=== PATIENT | female | born 1950 | race Caucasian/White ===

== ENCOUNTER 2019-05-10 18:12 | Observation (INO) ==
[2019-05-10] MEDS ORDERED: ASPIRIN PO ONE (18:26)
[2019-05-10] MEDS ORDERED: ASPIRIN PR ONE (18:26)
--- NOTE | 2019-05-10 18:52 | Diag Imaging Result Doc PS360 ---
EXAM: CHEST-2 VIEWS 05/10/2019 HISTORY: SOB TECHNIQUE: PA and lateral chest COMMENT: There is apical pleural thickening bilaterally. The heart size and pulmonary vascularity are within normal limits. Compared to 04/29/2019 there has been no significant change. IMPRESSION: Stable chest. Electronically signed by Hugo Garza 05/10/2019 6:50 PM
[2019-05-10 19:52] LABS: BASO# 0.01 X1000 (0.0-0.2); BASO% 0.2 % (0.0-0.8); EOS# 0.18 X1000 (0.0-0.7); EOS% 3.2 % (0.0-10.0); HEMATOCRIT 44.8 % (37.0-47.0); LYMPH# 2.23 X1000 (1.2-3.4); LYMPH% 39.3 % (20.5-51.1); MCHC 33.5 g/dL (33-37); MCV 98.7 FL (81-99); MONO# 0.72 X1000 (0.11-0.59); MONO% 12.7 % (1.7-9.3); MPV 10.6 FL (7.4-10.4); NEUT# 2.54 X1000 (1.4-6.5); NEUT% 44.6 % (42.2-75.2); PLT 231 X1000 (130-400); RBC 4.54 XMIL (4.2-5.4); RDW 13.1 % (11.5-14.5); WBC 5.68 X1000 (4.8-10.8)
[2019-05-10 20:06] LABS: INR 0.85; PROTIME 11.7 Seconds (11.0-16.0)
[2019-05-10 20:20] LABS: AGAP 12; ALB/GLOB RATIO 1.3; ALBUMIN 4.3 g/dL (3.5-5.0); ALKALINE PHOSPHATASE 112 U/L (32-104); BUN 10 mg/dL (8-22); CALCIUM 9.8 mg/dL (8.8-10.2); CHLORIDE 99 mmol/L (98-107); CK PROFILE 37 U/L (24-173); COSMO 278; CREATININE 0.7 mg/dL (0.5-0.9); ESTIMATED GFR > 60; GLUCOSE 119 mg/dL (70-104); GOT 24 U/L (10-30); GPT 18 U/L (10-36); POTASSIUM 4.1 mmol/L (3.5-5.1); SODIUM 139 mmol/L (136-145); TCO2 28 mmol/L (25-35); TOTAL BILIRUBIN < 0.15 mg/dL (0.20-1.00); TOTAL PROTEIN 7.7 g/dL (6.3-8.3)
[2019-05-10] MEDS ORDERED: TORADOL IM ONE (21:41)
--- NOTE | 2019-05-10 21:58 | PROVIDER DOCUMENTATION ---
This chart was entered by Tereza Stewart Scribe, acting as scribe for Anthony Gutierrez MD. HPI-Chest Pain - General Chief Complaint: Chest Pain Stated Complaint: CHEST PAIN/BACK/JAW PAIN/SOB/HIGH HEART RATE Time Seen by Provider: 05/10/19 20:55 Source: patient Allergies/Adverse Reactions: Patient Allergies Allergy/AdvReac Type Severity Reaction Status Date / Time phenobarbital Allergy Mild RASH Verified 05/13/13 09:29 Home Medications: Home Medication List Medication Instructions Recorded Confirmed Last Taken Type Estradiol [Estrace] 1 mg PO DAILY 11/26/12 03/08/14 03/07/14 20:00 History Lisinopril [Zestril] 10 mg PO DAILY 11/26/12 03/08/14 03/08/14 07:00 History Tramadol/APAP [Ultracet 1 tab PO BID 11/26/12 03/08/14 03/07/14 20:00 History 37.5MG/325Mg] Chlorzoxazone [Parafon Forte] 500 mg PO TID PRN PRN 01/12/13 03/08/14 03/07/14 20:00 History Clonazepam 1 mg PO TID 01/12/13 03/08/14 03/07/14 20:00 History Omeprazole [Prilosec] 20 mg PO DAILY 05/17/13 03/08/14 03/07/14 08:00 History Dicyclomine [Bentyl] 10 mg PO TID AC 02/01/14 03/08/14 03/07/14 20:00 History - History of Present Illness-CP Nature of Presenting Problem: 69 yof c/o cp intermittent but woke pt up last night,w/ pain radiating in left jaw, left shoulder blade and back. pt is also dizzy, having blurred vision. denies sob, fever and chills Chest Pain Radiation: reports: jaw, shoulders, back Onset/Duration: last night (woke pt up from sleeping) Timing: still present Review of Systems - Adult - REVIEW OF SYSTEMS - ADULT Constitutional: reports: no symptoms reported. denies: fever, fatique, night sweats Eyes: reports: see HPI, blurred vision. denies: dry eyes, eye pain, redness Ears, Nose, Mouth & Throat: reports: no symptoms reported Cardiovascular: reports: see HPI, chest pain. denies: irregular heart rate, orthopnea, palpitations Respiratory: reports: no symptoms reported. denies: dyspnea on exertion, shortness of breath, wheezing Gastrointestinal: reports: no symptoms reported Genitourinary: reports: no symptoms reported Musculoskeletal: reports: no symptoms reported Integumentary: reports: no symptoms reported Neurological: reports: see HPI, dizziness/vertigo. denies: headache/migraines, loss of balance, tremors Psychiatric: reports: no symptoms reported Endocrine: reports: no symptoms reported Hematologic/Lymphatic: reports: no symptoms reported Allergic/Immunologic: reports: no symptoms reported All Other Systems: Reviewed and Negative Past History - Adult - PAST MEDICAL HISTORY-ADULT Review of Records: reports: Old Records Reviewed, Nursing Assessment Review, Medications Reviewed, Social history reviewed & non-contributory. Major Childhood Illnesses: reports: denies history Cardiovascular: reports: HTN Respiratory: reports: denies history Gastrointestinal: reports: GERD Obstetrical/Gynecological: reports: denies history Genitourinary: reports: kidney stones Musculoskeletal: reports: denies history Neurological: reports: denies history Psychiatric: reports: depression Endocrine/Immune: reports: denies history Other Conditions: reports: denies history - PRIOR SURGERIES/PROCEDURES Surgical/Procedure History: reports: cholecystectomy, hysterectomy, joint replacement (TKA), back/neck - IMMUNIZATION STATUS Childhood Immunizations: See Nurse Assessment Flu Vaccine: See Nurse Assessment - FAMILY HISTORY Family History: reviewed, not pertinent - SOCIAL HISTORY Smoking: other (former) Substance Use: alcohol Alcohol Use Frequency: occasionally Physical Exam-General - PHYSICAL EXAM-ADULT Initial Vital Signs Reviewed: Yes - CONSTITUTIONAL General Appearance: appears well, alert, no apparent distress - EYES Eyes: PERRL/EOMI, pink conjunctivae - HEAD, EARS, NOSE, MOUTH & THROAT HENMT: normocephalic/atraumatic, moist mucous membranes, normal ENT inspection - NECK Neck: non-tender, full range of motion, supple, normal inspection - RESPIRATORY Respiratory: chest non-tender, lungs clear, normal breath sounds - CARDIOVASCULAR Cardiovascular: normal peripheral pulses, no edema, no gallop, no JVD, no murmur , tachycardia. negative: regular rate, rhythm, JVD, bradycardia, friction rub, irregularly irregular - CHEST (BREASTS) Chest/Breast: tenderness (reproducable 4th and 5th costochondrial junctions). negative: no tenderness, nipple discharge, mass/lump noted - GASTROINTESTINAL (ABDOMEN) Abdominal Exam: normal bowel sounds, non tender, soft - LYMPHATIC Lymphatic: no adenopathy - MUSCULOSKELETAL Back Exam: normal inspection, no CVA tenderness, no vertebral tenderness Extremity: normal range of motion, non-tender, normal inspection Peripheral Pulses: radial (R): 2+, radial (L): 2+ - SKIN Integumentary: normal color, normal turgor, warm/dry - NEUROLOGIC Neurologic: grossly normal, no motor/sensory deficits - PSYCHIATRIC Psych/Mental Status: normal mood/affect, normal thought content, normal thought process, oriented x 3 Progress - PLAN OF CARE/RESULTS Progress/Plan/Lab Results: Orders Category Date Time Status Admit - [facility] Routine AdmDCTranf 05/10/19 23:24 Active Cardiac Monitoring DIRECTED Care 05/10/19 18:26 Completed Notify MD if DIRECTED Care 05/10/19 23:24 Active Nursing- MD Consult Request ROUTINE Care 05/10/19 23:24 Active Oxygen Therapy- ED Nursing DIRECTED Care 05/10/19 18:26 Completed Saline Loc DIRECTED Care 05/10/19 23:24 Completed Saline Loc NOW Care 05/10/19 18:26 Completed Vital Signs Order Q 4-HR ASSESS Care 05/10/19 23:24 Active Z-Document. for Tele Applied ORDERED Care 05/10/19 23:24 Completed Physician/Provider Consults Routine Cons 05/10/19 23:24 Ordered NPO Diet 05/11/19 00:01 Completed CHEST-2 VIEWS [RAD] Stat Exams 05/10/19 18:26 Completed CBC WITH ELECTRONIC DIFF [HEME] Stat Lab 05/10/19 18:30 Completed CK PROFILE [SP CHEM] Q8H Lab 05/10/19 23:39 Completed CK PROFILE [SP CHEM] Q8H Lab 05/11/19 06:25 Completed CK PROFILE [SP CHEM] Q8H Lab 05/11/19 18:14 Completed CK PROFILE [SP CHEM] Stat Lab 05/10/19 18:30 Completed COMPREHENSIVE METABOLIC PANEL [CHEM] Stat Lab 05/10/19 18:30 Completed D-DIMER [COAG] Stat Lab 05/10/19 20:52 Completed LIPID PROFILE W/CALC LDL [LIPIDS] Routine Lab 05/11/19 06:25 Completed PRO B-NATRIURETIC PEPTIDE Stat Lab 05/10/19 18:30 Completed PROTIME WITH INR [COAG] Stat Lab 05/10/19 18:30 Completed PTT [COAG] Stat Lab 05/10/19 18:30 Completed TROPONIN T Q8H Lab 05/10/19 23:39 Completed TROPONIN T Q8H Lab 05/11/19 06:25 Completed TROPONIN T Q8H Lab 05/11/19 18:14 Completed TROPONIN T Stat Lab 05/10/19 18:30 Completed Acetaminophen [Tylenol] Med 05/10/19 23:24 Discontinued 650 mg PO Q6H PRN PRN Aspirin Med 05/10/19 18:26 Discontinued 300 mg MA NOW ONE Aspirin Med 05/11/19 09:00 Discontinued 325 mg PO DAILY Aspirin Med 05/10/19 18:26 Discontinued 325 mg PO NOW ONE Enoxaparin [Lovenox] Med 05/10/19 23:24 Discontinued 40 mg SUBQ Q24H Ketorolac [Toradol] Med 05/10/19 21:41 Discontinued 60 mg IM NOW ONE Nitroglycerin Sl [Nitroglycerin] Med 05/10/19 23:24 Discontinued 0.4 mg SL Q5M PRN PRN Omeprazole [Prilosec] Med 05/11/19 07:00 Discontinued 20 mg PO DAILY@0700 Ondansetron [Zofran] Med 05/10/19 23:24 Discontinued 4 mg IV Q4H PRN PRN Oxygen Device Routine Oth 05/10/19 23:24 Active Telemetry [OM.EQ] Routine Oth 05/10/19 23:24 Active EKG [EKG] Stat Ther 05/10/19 18:26 Draft Transfer/Admit Order [TRANSFER] Routine Transfer 05/10/19 22:06 Completed Result Diagrams: 05/10/19 18:30 05/10/19 18:30 - EKG 1 Time of EKG reading by physician:: 18:29 EKG Read and Signed by:: King Courtney EKG Interpretation (*Must complete 3 of following elements*): Abnormal Rate: 108 Rhythm: ST Sumpter: left QRS: normal MA Interval: normal ST Wave: normal - XRAY 1 XRAY Study: Chest Impression: See EMR Report ( EXAM: CHEST-2 VIEWS 05/10/2019 HISTORY: SOB TECHNIQUE: PA and lateral chest COMMENT: There is apical pleural thickening bilaterally. The heart size and pulmonary vascularity are within normal limits. Compared to 04/29/2019 there has been no significant change. IMPRESSION: Stable chest. Electronically signed by Hugo Garza 05/10/2019 6:50 PM) Comparison with other Films: no changes - CONSULTS/PCP/HOSPITALIST Notification #1 *Consult/PCP/Hospitalist*: Time Discussed: 22:05 Consult Disposition: Admit (for obvs) Departure - Departure Date of Disposition Decision: 05/10/19 Time of Disposition Decision: 22:50 DIAGNOSIS: Chest pain Disposition: ADMITTED INPATIENT 09 Certified Medical Emergency: Emergent Condition: Good - Critical Care Note This patient required my direct & personal management of CC.: No Attestation - Physician/ GARCIA Attestation Patient care was provided by Advanced Practice Provider:: No The physician spent face to face time with patient:: Yes Advanced Practice Provider documentation review:: Supervising physician onsite and consulted in the evaluation and care of this patient. The physician did have a face to face encounter with the patient. This chart was documented by the indicated scribe, (Tereza Stewart Scribe) and accurately reflects the services I performed and decisions made by me, Anthony Gutierrez MD, as attested by the provider's signature.
[2019-05-10] MEDS ORDERED: ZOFRAN IV PRN (23:24)
[2019-05-10] MEDS ORDERED: NITROGLYCERIN SL PRN (23:24)
[2019-05-10] MEDS ORDERED: LOVENOX SUBQ SCH (23:24)
[2019-05-10] MEDS ORDERED: TYLENOL PO PRN (23:24)
--- NOTE | 2019-05-11 01:36 | HISTORY AND PHYSICAL ---
PRIMARY CARE PHYSICIAN: Dr. White. CHIEF COMPLAINT: Chest pain. HISTORY OF PRESENT ILLNESS: This is a 69-year-old female with a history of chronic back pain and GERD who presented to the emergency department with 2 days history of having chest pain, she described it as pressure-like with radiation to her jaw and left shoulder. She states that she was short of breath. She was evaluated in the emergency department due to her presenting symptoms and it was thought that we will place her for observation, further evaluation and management. At the time of my examination she denied any headache, fever, chills, nausea, vomiting, diarrhea, hemoptysis, melena, weight changes, but complained of chest discomfort and shortness of breath. PAST MEDICAL HISTORY: Includes chronic back pain, GERD. PAST SURGICAL HISTORY: Right knee surgery, hysterectomy, back surgery, cholecystectomy. ALLERGIES: To phenobarbital. CURRENT MEDICATIONS: Clonazepam 1 mg p.o. t.i.d., estradiol 1 mg p.o. daily, lisinopril 10 mg p.o. daily, omeprazole 20 mg p.o. daily, tramadol 1 tablet p.o. b.i.d. SOCIAL HISTORY: She is a former smoker. No history of alcohol or illicit drug use. FAMILY HISTORY: No history of coronary disease. REVIEW OF SYSTEMS: Fourteen point review of system as listed in HPI. Other systems negative. PHYSICAL EXAMINATION: GENERAL: A cooperative friendly female. She is resting comfortably now. VITAL SIGNS: Temperature 98 degrees, pulse 117, respirations 18, blood pressure 113/82. HEENT: Atraumatic and normocephalic. Extraocular movements are intact. PERRLA. NECK: Supple. CHEST: Clear to auscultation. CARDIOVASCULAR: Regular rate and rhythm. S1 and S2. ABDOMEN: Soft. Positive bowel sounds. EXTREMITIES: No edema. NEUROLOGIC: Nonfocal. : No bladder distention. SKIN: Warm. LABORATORIES AND STUDIES: WBC is 5.68, hemoglobin 15.1, hematocrit 44.8, platelets 231,000. Sodium 139, potassium 4.1, chloride 99, CO2 is 28, BUN is 10, creatinine is 0.7, glucose is 119, troponin is 0.010. Chest x-ray is stable chest. ASSESSMENT: A 69-year-old female with a history of chronic back pain and GERD who had presented to the emergency department with 2 days history of having chest pain. We will place the patient on observation for further evaluation and management. 1. Chest pain. 2. Gastroesophageal reflux disease. 3. Chronic back pain. PLAN: 1. We will admit the patient to medical floor with telemetry. 2. Continue with cardiac workup. Check EKG and cardiac enzymes. Have the patient continue on aspirin. We will use sublingual nitroglycerin and morphine p.r.n. chest pain. 3. Continue the patient on a PPI. 4. Give the patient adequate pain control. 5. Put the patient on DVT prophylaxis with Lovenox. 6. Continue to follow, reassess and make further recommendation based on the patient's clinical course. cc: Roni Deleon MD
[2019-05-11] MEDS ORDERED: PRILOSEC PO SCH (07:00)
--- NOTE | 2019-05-11 07:45 | EKG Report ---
Test Performed on : 05/10/2019 6:29:33 PM Test Reason : SOB Blood Pressure : / mmHG Vent. Rate : 108 BPM Atrial Rate : 108 BPM P-R Int : 126 ms QRS Dur : 070 ms QT Int : 314 ms P-R-T Axes : 047 -37 048 degrees QTc Int : 420 ms Sinus tachycardia. Left axis deviation Abnormal ECG When compared with ECG of 10-APR-2016 11:15, Vent. rate has increased BY 38 BPM Unconfirmed Result
[2019-05-11 08:06] LABS: CHOLESTEROL 140 mg/dL (0-200); HDL 44 mg/dL (45-65); LDL 68 mg/dL; TRIGLYCERIDES 141 mg/dL (35-135); VLDL 28 mg/dL
[2019-05-11] MEDS ORDERED: ASPIRIN PO SCH (09:00)
--- NOTE | 2019-05-11 10:29 | EKG Report ---
Test Performed on : 05/11/2019 10:24:15 AM Test Reason : chest pain Blood Pressure : / mmHG Vent. Rate : 061 BPM Atrial Rate : 061 BPM P-R Int : 146 ms QRS Dur : 086 ms QT Int : 470 ms P-R-T Axes : 050 -29 038 degrees QTc Int : 473 ms Normal sinus rhythm. Low voltage QRS Borderline ECG When compared with ECG of 10-MAY-2019 18:29, (Unconfirmed) Vent. rate has decreased BY 47 BPM QT has lengthened Confirmed by Ginette Gresham MD ([id number]) on 05/16/2019 9:28:04 PM
[2019-05-11] MEDS ORDERED: HEPARIN 1000 UNITS/NS 2,000 UNIT/1,000 ML IV.SOLN ONE (12:25)
[2019-05-11] MEDS ORDERED: XYLOCAINE 1% ONE (12:27)
--- NOTE | 2019-05-11 12:48 | CONSULTATION ---
DATE OF CONSULTATION: 05/11/2019 IMPRESSION: 1. Recurrent chest discomfort with jaw radiation, with clinical features suspicious for unstable angina. 2. Previous evaluation for chest discomfort 1 year ago with a stress myocardial perfusion study that demonstrated benign results. 3. Gastroesophageal reflux disease. 4. Family history of coronary artery disease, albeit at older age of clinical onset. RECOMMENDATIONS: I favor definitive evaluation with cardiac catheterization and selective coronary angiography. The rationale for this approach and potential hazards were discussed with the patient and her at length. She very much wished to proceed. We will arrange for a cardiac catheterization/coronary angiography this afternoon. Possible need for transfer to [place] in the event coronary angioplasty/stenting was needed was also discussed with the patient. HISTORY: This 69-year-old, white female was admitted through the emergency room last night for evaluation of chest pain. She relates that over the past couple of days, she has been having episodes of chest pressure with jaw radiation and radiation to the center of her back. She has also been having exertional shortness of breath for the past several weeks. Last night, her chest discomfort developed while she was in bed and prompted her to come to the emergency room. She relates discomfort was rather intense. Discomfort resolved in the emergency room. She has not had any recurrence. PAST MEDICAL HISTORY: 1. Evaluation for chest discomfort last year with a stress myocardial perfusion study which was benign. 2. Gastroesophageal reflux disease. 3. Chronic back disorder. PAST SURGICAL HISTORY: Includes unspecified right knee surgery, hysterectomy, unspecified back surgery, and cholecystectomy. ALLERGIES: She is allergic or intolerant of phenobarbital. MEDICATIONS PRIOR TO ADMISSION: As listed. SOCIAL HISTORY: She has a history of smoking in the past but does not currently smoke. FAMILY HISTORY: Positive for coronary artery disease with older age of clinical onset. REVIEW OF SYSTEMS: Pulmonary: Noteworthy for exertional shortness of breath. Gastrointestinal: Noteworthy for a history of gastroesophageal reflux. Otherwise noncontributory. Remainder of the review of systems was negative/noncontributory with 14 total systems reviewed. PHYSICAL EXAMINATION: General: This is a pleasant, older white female in no distress. Vital Signs: Blood pressure 127/77, heart rate 58 and regular. Weight 191 pounds. HEENT Examination: Extraocular movements appear intact. Mucous membranes are moist. Neck: Supple without jugular venous distention. There are no carotid bruits. Chest: Clear to auscultation bilaterally. Cardiac Examination: Reveals a regular rate and rhythm without appreciable murmur or gallop. Abdomen: Soft. Bowel sounds are normal. Extremities: Without edema. Neurologic: Examination reveals her to be alert and fully oriented. Speech is fluent. She moves all 4 extremities equally well. Skin: Warm and dry. Psychiatric: Examination reveals her mood to be appropriate. DIAGNOSTIC DATA: A 12 lead EKG demonstrates sinus rhythm and low voltage QRS. Very mild nonspecific T-wave flattening is demonstrated. LABORATORY DATA: Includes a white blood cell count of 5.6, hematocrit 44.8, hemoglobin 15.0, platelet count 231,000. D-dimer less than 0.27. Sodium 139, potassium 4.1, chloride 99, carbon dioxide 28, BUN 10, creatinine 0.7, glucose 119. Initial troponin T less than 0.01 with followup troponin T of less than 0.01 and less than 0.01. Initial CPK 37 with followup CPK of 35 and 30. cc: John Espinosa MD
--- NOTE | 2019-05-11 12:55 | PROGRESS NOTE ---
DATE: 05/11/2019 SUBJECTIVE: Today, Ms. Dodge refers to be doing okay. Denies any new chest pain. Ms. Melton got admitted yesterday because of acute onset of chest pain that will wake her up. She presented to the emergency department, and was evaluated including multiple troponin's that were done which have been negative and unremarkable EKG. OBJECTIVE: On general exam, Ms. Melton is a 69-year-old female. She is in bed no distress. Mucosa is pink and moist. Anicteric. Acyanotic.Neck: Neck is supple. Lungs: Chest with good air entry bilaterally. No crepitations. No rhonchi. Cardiovascular: Regular rate and rhythm. No murmurs, no rubs, no gallops. Abdomen: Soft. Extremities: No pedal edema. TITRATOR: Patient is awake, alert, and oriented. There is no focal neurological deficit. LABORATORY DATA: CBC and chemistry from yesterday have been unremarkable. The cholesterol panel is also unremarkable. A chest x-ray which was done yesterday was stable. ASSESSMENT: 1. Atypical chest pain with unremarkable EKG and troponin. The patient has been evaluated by Cardiology. There is a plan for an angiogram later on today. 2. History of gastroesophageal reflux disease. 3. Chronic back pain. 4. In general, I think Ms. Melton is doing a lot better. We are going to be waiting on the results of the left heart catheterization, and then make further decisions. cc: Toño Pettit MD
[2019-05-11] MEDS ORDERED: NS 1,000 ML ONE (13:02)
[2019-05-11] MEDS ORDERED: CLAVE PUMP SET NO FILTER 12260 ONE (13:02)
[2019-05-11] MEDS ORDERED: CLAVE TWINSITE 32 IN 11959 ONE (13:02)
[2019-05-11] MEDS ORDERED: VERSED ONE (13:31)
[2019-05-11] MEDS ORDERED: MORPHINE ONE (13:35)
[2019-05-11] MEDS ORDERED: NS 1,000 ML IV SCH (16:00)
[2019-05-11 16:07] VITALS: BP 133/88
--- NOTE | 2019-05-11 16:33 | EKG Report ---
Test Performed on : 05/11/2019 3:12:45 PM Test Reason : post heart cath Blood Pressure : / mmHG Vent. Rate : 057 BPM Atrial Rate : 057 BPM P-R Int : 122 ms QRS Dur : 082 ms QT Int : 474 ms P-R-T Axes : 013 -29 018 degrees QTc Int : 461 ms Sinus bradycardia. Otherwise normal ECG When compared with ECG of 11-MAY-2019 10:24, (Unconfirmed) No significant change was found Confirmed by Ginette Gresham MD ([id number]) on 05/16/2019 9:28:35 PM
--- NOTE | 2019-05-12 00:02 | DISCHARGE SUMMARY ---
ADMISSION DATE: 05/10/2019 DISCHARGE DATE: 05/11/2019 DISPOSITION: Home. FOLLOW-UP WITH: 1. Dr. White. 2. Dr. Espinosa. CONSULTATION DURING THIS ADMISSION: Cardiology was consulted, patient was seen by Dr. Espinosa. INVASIVE PROCEDURES DONE: A left heart catheterization was done by Dr. Espinosa. I was told that preliminary report was normal and that the patient can be discharged from Cardiology standpoint. IMAGING STUDIES OF SIGNIFICANCE: 1. A chest x-ray was unremarkable. 2. Multiple EKGs were done which did not show any acute changes. ADMISSION DIAGNOSES: 1. Chest pain. 2. Chronic back pain. 3. Gastroesophageal reflux disease. DIAGNOSIS AT THE TIME OF DISCHARGE: 1. Atypical chest pain with unremarkable EKG and troponin. Left heart catheterization is said to be unremarkable. Chest pain is presumed to be noncardiac. 2. History of gastroesophageal reflux disease. 3. Chronic pain. 4. Hypertension. DISCHARGE MEDICATIONS: 1. Lisinopril 10 mg p.o. daily. 2. Tramadol 1 tablet b.i.d. 3. Clonazepam 1 mg p.o. 3 times per day. 4. Omeprazole 20 mg p.o. daily. 5. Bentyl 10 mg p.o. 3 times daily. PRESENTING COMPLAINT: Chest pain. HISTORY OF PRESENTING COMPLAINT: Ms Melton is a 69-year-old female with multiple comorbidities, including GERD and chronic back pain, came to the emergency department because of chest pressure, pain radiating to the jaw. Patient was evaluated because of risk factors and other presentations to the ER for the same complaint, it was deemed necessary to admit for cardiac risk stratification. HOSPITAL COURSE: Ms. Melton was admitted to the medical floor under tele monitoring. Troponin were trended 3 times, which came back negative. EKGs were also unremarkable. A left heart catheterization was done, which at the time of the dictation the official report is not out, but I have been told by her nurse that preliminary result from Dr. Espinosa said was negative and that patient can be discharged from their standpoint. Ms. Melton will follow up with Dr. Espinosa as well as with her primary care doctor, Dr. White. At the time of the discharge, Ms. Melton was in stable condition. DISCHARGE VITAL SIGNS: Her blood pressure is 133/88, pulse of 53, respirations 14, temperature 97.8 degrees. TIME SPENT: The time spent for discharge is 37 minutes. cc: MD John Dumont MD Kenneth E. Mashburn, MD
--- NOTE | 2019-05-24 09:26 | CARDIAC CATH REPORT ---
PROCEDURE NAME: - PROCEDURE PERFORMED: Left heart catheterization with selective coronary angiography. ENTRY SITE: Right femoral artery. CATHETERS USED: A 5-[place]izen [place] JL-4, 3DRC, and angled pigtail. TECHNIQUE: After intravenous sedation with morphine and Versed, local anesthesia with lidocaine was applied over the right femoral artery. Arterial access was established with placement of a 5- [place] sheath in the right femoral artery using modified Seldinger technique. Selective coronary angiography was performed, followed by left heart catheterization and left ventriculography. Upon completion of procedure, arterial sheath was removed from right femoral artery, and hemostasis facilitated with manual pressure. The patient tolerated the procedure without apparent complications. FINDINGS: Hemodynamics: Aortic pressure 139/77 with a mean of 102, left ventricular pressure 147 over EDP of 5. Comments on Hemodynamics: There is no significant gradient across the aortic valve demonstrated on pullback of left ventricle. ANGIOGRAPHY: 1. Left ventriculogram. The left ventricle is of normal size, without regional wall motion abnormality evident on FRENCH projection. Estimated left ventricular ejection fraction is approximately 65%. There is no significant mitral regurgitation. 2. Left main coronary. The left main coronary is free of significant coronary stenosis. 3. Left anterior descending coronary. The left anterior descending coronary and its branches are free of significant coronary stenosis. 4. Left circumflex. The left circumflex coronary artery and its branches are free of significant coronary stenosis. 5. Right coronary. The right coronary artery is dominant and demonstrates a mild (30%) segmental stenosis proximally. CONCLUSIONS: 1. Normal left ventricular function without regional wall motion abnormality evident on FRENCH projection. 2. Right dominant coronary anatomy with mild single-vessel coronary atherosclerosis involving the right coronary artery. cc: John Espinosa MD
== END 2019-05-11 18:38 | disposition home or self-care (01) ==
LOC: ED 18:12 → 3N 18:12 → SUATTDRO 22:32 → 3S 05-11 14:02
PROVIDERS: ATTEND Internal Medicine

== ENCOUNTER 2019-11-03 08:53 | Inpatient (IN) ==
--- NOTE | 2019-10-20 09:34 | EKG Report ---
Test Performed on : 10/20/2019 09:31:23 AM Test Reason : PAT Blood Pressure : / mmHG Vent. Rate : 083 BPM Atrial Rate : 083 BPM P-R Int : 132 ms QRS Dur : 080 ms QT Int : 354 ms P-R-T Axes : 051 -30 029 degrees QTc Int : 415 ms Normal sinus rhythm. Left axis deviation Abnormal ECG When compared with ECG of 11-MAY-2019 15:12, Nonspecific T wave abnormality no longer evident in Inferior leads Confirmed by Andrey MARKHAM, Harvey Rodríguez ([id number]) on 10/21/2019 12:22:59 PM
[2019-10-20 09:52] LABS: URINE SOURCE CLEAN CATCH
[2019-10-20 09:58] LABS: BASO# 0.03 X1000 (0.0-0.2); BASO% 0.5 % (0.0-0.8); EOS# 0.31 X1000 (0.0-0.7); EOS% 4.8 % (0.0-10.0); HEMATOCRIT 44.6 % (37.0-47.0); HEMOGLOBIN 14.9 g/dL (12.0-16.0); LYMPH# 2.11 X1000 (1.2-3.4); LYMPH% 32.5 % (20.5-51.1); MCH 34.1 PG (27-31); MCHC 33.4 g/dL (33-37); MCV 102.1 FL (81-99); MONO# 0.76 X1000 (0.11-0.59); MONO% 11.7 % (1.7-9.3); MPV 10.6 FL (7.4-10.4); NEUT# 3.28 X1000 (1.4-6.5); NEUT% 50.5 % (42.2-75.2); PLT 234 X1000 (130-400); RBC 4.37 XMIL (4.2-5.4); RDW 13.4 % (11.5-14.5); WBC 6.49 X1000 (4.8-10.8)
[2019-10-20 10:04] LABS: INR 0.86; PROTIME 11.8 Seconds (11.0-16.0)
[2019-10-20 10:05] LABS: PTT 27.9 Seconds (22.3-41.8)
[2019-10-20 10:18] LABS: AGAP 11; ALBUMIN 4.1 g/dL (3.5-5.0); BUN 11 mg/dL (8-22); CALCIUM 9.8 mg/dL (8.8-10.2); CHLORIDE 98 mmol/L (98-107); COSMO 276; CREATININE 0.8 mg/dL (0.5-0.9); ESTIMATED GFR > 60; GLUCOSE 87 mg/dL (70-104); POTASSIUM 4.3 mmol/L (3.5-5.1); SODIUM 139 mmol/L (136-145); TCO2 30 mmol/L (25-35)
[2019-10-20 10:55] LABS: BILIRUBIN URINE NEGATIVE (NEGATIVE); BLOOD URINE NEGATIVE (NEGATIVE); COLOR YELLOW; GLUCOSE URINE NEGATIVE (NEGATIVE); KETONE URINE NEGATIVE (NEGATIVE); LEUKOCYTES URINE NEGATIVE (NEGATIVE); NITRITE URINE NEGATIVE (NEGATIVE); PH URINE 6.5; PROTEIN URINE NEGATIVE (NEGATIVE); SP GRAVITY URINE 1.007; TURBIDITY URINE CLEAR (CLEAR); UROBILINOGEN URINE NORMAL (NORMAL)
[2019-10-20 10:59] LABS: UR EPITHELIAL CELLS <10 /HPF (<10); URINE BACTERIA NEGATIVE /HPF; URINE RBC <10 /HPF (<10); URINE WBC <10 /HPF (<10)
[2019-10-20 11:14] LABS: HEMOGLOBIN A1C 5.2 % (4.8-6.0)
[~2019-11-03 08:53] MED LIST: DIPRIVAN 1% ONE; FENTANYL ONE
[2019-11-03] MEDS ORDERED: LR 1,000 ML ONE (09:18)
[2019-11-03] MEDS ORDERED: REGLAN ONE (09:18)
[2019-11-03] MEDS ORDERED: LYRICA ONE ×2 (09:18→09:19)
[2019-11-03] MEDS ORDERED: COLACE ONE (09:18)
[2019-11-03] MEDS ORDERED: PEPCID ONE (09:18)
[2019-11-03] MEDS ORDERED: CELEBREX ONE (09:18)
[2019-11-03] MEDS ORDERED: KEFZOL 1 GM/D5W 2 GM/100 ML IVPB ONE (09:19)
[2019-11-03] MEDS ORDERED: DURAMORPH ONE (10:59)
[2019-11-03] MEDS ORDERED: CYKLOKAPRON 1,000 MG/NS 1,000 MG/100 ML IVPB ONE ×2 (10:59→11:00)
[2019-11-03] MEDS ORDERED: MARCAINE 0.25% PF ONE (10:59)
[2019-11-03] MEDS ORDERED: TORADOL ONE (10:59)
[2019-11-03] MEDS ORDERED: VANCOMYCIN ONE (10:59)
[2019-11-03] MEDS ORDERED: SODIUM CHLORIDE 0.9% ONE (10:59)
[2019-11-03] MEDS ORDERED: NEOSPORIN G.U. IRRIGANT ONE (11:00)
[2019-11-03] MEDS ORDERED: EXPAREL 1.3% ONE (11:00)
[2019-11-03 12:21] LABS: URINE SOURCE CATH
[2019-11-03 12:26] LABS: BILIRUBIN URINE NEGATIVE (NEGATIVE); BLOOD URINE NEGATIVE (NEGATIVE); COLOR STRAW; GLUCOSE URINE NEGATIVE (NEGATIVE); KETONE URINE NEGATIVE (NEGATIVE); LEUKOCYTES URINE NEGATIVE (NEGATIVE); NITRITE URINE NEGATIVE (NEGATIVE); PROTEIN URINE NEGATIVE (NEGATIVE); SP GRAVITY URINE 1.005; TURBIDITY URINE CLEAR (CLEAR); UR EPITHELIAL CELLS <10 /HPF (<10); URINE BACTERIA NEGATIVE /HPF; URINE RBC <10 /HPF (<10); URINE WBC <10 /HPF (<10); UROBILINOGEN URINE NORMAL (NORMAL)
[2019-11-03] MEDS ORDERED: DECADRON ONE (12:27)
[2019-11-03] MEDS ORDERED: OFIRMEV 1000 MG/ISOTONIC SOLN 1,000 MG/100 ML BOTTLE ONE (12:27)
[2019-11-03] MEDS ORDERED: ZOFRAN ONE (12:27)
[2019-11-03] MEDS ORDERED: DIPRIVAN 1% ONE (12:28)
--- NOTE | 2019-11-03 13:53 | Diag Imaging Result Doc PS360 ---
KNEE 1-2 VIEWS-LEFT - 11/03/2019 INDICATION: Left total Knee TECHNIQUE: Two views COMPARISON: None FINDINGS: There has been left total knee arthroplasty with patellar resurfacing. Alignment is anatomic. No hardware fracture or loosening. IMPRESSION: No complication. Electronically signed by Anil Joaquin 11/03/2019 1:50 PM
[2019-11-03] MEDS ORDERED: NS 1,000 ML ONE (14:00)
--- NOTE | 2019-11-03 15:07 | OPERATIVE NOTE ---
PROCEDURE DATE: 11/03/2019 PREOPERATIVE DIAGNOSIS: Degenerative osteoarthritis of left knee. POSTOPERATIVE DIAGNOSIS: Degenerative osteoarthritis of left knee. PROCEDURE: Left total knee arthroplasty with DePuy Attune size 6 narrow posterior stabilized femur, a 6 mm rotating platform tibial insert, and a 5 mm rotating platform tibial insert, and a 35 mm medialized anatomic patella. SURGEON: Zurdo Mccloud MD MEDIA RELATIONS MANAGER: RAYMOND Luz, who is necessary from proper positioning, retraction and manipulation of the extremity during the case. SECOND TRAVOGRAPH OPERATOR: David Barbosa RN. ANESTHESIA: Spinal. IV FLUIDS: 1000 mL lactated Ringer's. ESTIMATED BLOOD LOSS: 50 mL. TOURNIQUET TIME: 85 minutes at 300 mmHg. INDICATION: The patient is a 69-year-old female with chronic history of pain and discomfort of the left knee. Continued pain and discomfort despite appropriate nonoperative treatment. X-rays revealed degenerative osteoarthritis. The recommendation to proceed with left total knee arthroplasty was offered. Risks and benefits of surgery were explained, including the risks of anesthesia, , bleeding, infection, failure to relieve pain, postoperative stiffness, nerve injury, blood clots, and other imponderables. All questions were answered. The patient and family wished to proceed with surgery. DESCRIPTION OF OPERATION: The patient was taken to the operating room and underwent spinal anesthesia. After adequate anesthesia was obtained, she was placed supine on the operating table. The left lower extremity was subsequently prepped and draped in usual sterile fashion. An Esmarch was used to exsanguinate the left lower extremity and the tourniquet was inflated to 300 mmHg. A standard anterior incision made with skin knife. Medial and skin envelopes were developed. Standard medial parapatellar arthrotomy was then performed. Patella fat pad was excised. Retractors then placed superior and proximal 1 cm anterior to the PCL insertion, starting reamer was passed. Intramedullary guide with a distal femoral cutting block was pinned in position. Distal femoral cut was then performed in a standard fashion. A sizing block was placed and measured size 6. Corresponding pins were placed. A size 6 cutting block was pinned in position. Anterior, posterior, and chamfer cuts were then made. Attention then turned to the proximal tibia where the using the extramedullary guide, the proximal tibia cutting block was pinned in position. Had good alignment confirmed with the alignment kylee. The proximal tibia was then resected. Medial and lateral menisci were excised. A curved osteotome was used to remove the posterior osteophytes off the distal femur. A spacer block was then placed. Had good soft tissue balance both flexion and extension. Attention then turned back to the proximal tibia where a size 6 tibial tray appeared to be the correct size. This was pinned in position. This followed by a central reamer and a fin punch. A box cutting guide was then pinned on the distal femur. A box cut was performed. A trial femoral component was then placed and 2 lug holes were drilled. A trial tibial insert was then placed and good soft tissue balancing. Patella was everted and resected standard fashion. A size 35 appeared to correct size. Corresponding holes were drilled. The trial patella component was then placed and had good patellofemoral tracking. Trial components were then removed. Copious irrigation was then performed with antibiotic pulsatile lavage while vancomycin was mixed in cement on the back table. Sequential cementing was then performed first with the tibial tray and excess cement removed with a Holman followed by the femoral component. Excess cement removed with a Holman followed by trial tibial insert in full extension and axial loading was maintained while cement cured. Peripheral cement was removed with a small osteotome. Patella component was then cemented in standard fashion. Patella clamp was placed. Exparel was placed in deep soft tissue, as well subcutaneous tissue. After cement had cured, peripheral cement was removed with a small osteotome. The 5 mm rotating platform tibial insert appeared to correct size. The trial insert was removed. Exparel was placed in the posterior capsule. Copious irrigation performed once again with antibiotic pulsatile lavage. A 5 mm rotating platform tibial insert was then placed. Knee was carried through range of motion. Good range of motion. Good soft tissue balance. Good patellofemoral tracking. A 1/8 Hemovac drain was placed and was not sewn in. Copious irrigation then performed once again with antibiotic pulsatile lavage. Number 1 Vicryl was then used to repair the arthrotomy followed by 2- 0 Vicryl to repair the subcutaneous tissue and skin delma. Adaptic, sterile 4 x 4's, ABD pad, Webril, cryo unit, Ralph wrap was applied to the left lower extremity. Patient tolerated the procedure well. Transferred to recovery room in stable condition. cc: Zurdo Mccloud MD
[2019-11-03] MEDS ORDERED: OXY IR PO PRN (15:15)
[2019-11-03] MEDS ORDERED: DILAUDID IV PRN ×2 (15:15)
[2019-11-03] MEDS ORDERED: MILK OF MAGNESIA PO PRN (15:15)
[2019-11-03] MEDS ORDERED: ZOFRAN PO PRN (15:15)
[2019-11-03] MEDS: TYLENOL PO SCH ×2 (17:18→20:24)
[2019-11-03] MEDS: NS 1,000 ML IV SCH (17:18)
[2019-11-03] MEDS: KEFZOL 2 GM/D5W 2 GM/50 ML IVPB IV SCH (20:23)
[2019-11-03] MEDS: PERIDEX MT SCH (20:24)
[2019-11-03] MEDS: FLEXERIL PO SCH (20:24)
[2019-11-03] MEDS: ULTRACET 37.5MG/325MG PO SCH (22:07)
[2019-11-03] MEDS: KLONOPIN PO SCH (22:07)
[2019-11-04] MEDS: OXY IR PO PRN ×4 (00:14→11:04)
[2019-11-04] MEDS: KEFZOL 2 GM/D5W 2 GM/50 ML IVPB IV SCH (03:54)
[2019-11-04] MEDS: TYLENOL PO SCH ×3 (03:55→10:50)
[2019-11-04] MEDS ORDERED: PRILOSEC PO SCH (07:00)
[2019-11-04 07:22] VITALS: BP 114/73
[2019-11-04 07:30] LABS: HEMATOCRIT 38.2 % (37.0-47.0); HEMOGLOBIN 12.7 g/dL (12.0-16.0)
[2019-11-04] MEDS: NS 1,000 ML IV SCH (08:01)
[2019-11-04 08:02] LABS: AGAP 10; BUN 11 mg/dL (8-22); CHLORIDE 102 mmol/L (98-107); COSMO 277; CREATININE 0.7 mg/dL (0.5-0.9); ESTIMATED GFR > 60; GLUCOSE 138 mg/dL (70-104); POTASSIUM 4.1 mmol/L (3.5-5.1); SODIUM 138 mmol/L (136-145); TCO2 26 mmol/L (25-35)
[2019-11-04] MEDS: KLONOPIN PO SCH (08:12)
[2019-11-04] MEDS: FLEXERIL PO SCH (08:12)
[2019-11-04] MEDS: PERIDEX MT SCH (08:13)
[2019-11-04] MEDS: ULTRACET 37.5MG/325MG PO SCH (08:17)
[2019-11-04] MEDS ORDERED: ASPIRIN PO SCH (09:00)
[2019-11-04] MEDS ORDERED: KLONOPIN PO SCH (09:00)
[2019-11-04] MEDS ORDERED: ULTRACET 37.5MG/325MG PO SCH (09:00)
[2019-11-04] MEDS ORDERED: ESTRACE PO SCH (09:00)
--- NOTE | 2019-11-04 15:00 | ORTHOPAEDICS PROGRESS NOTE ---
DATE: 11/04/2019 SUBJECTIVE: Ms. Melotn is status post day 1 of a left total knee arthroplasty. She rested well throughout the night last night and has no complaints at this time. Her drain has been removed and her surgical dressing has been changed this morning. OBJECTIVE: Ms. Melton is lying in bed with her at her bedside. She has no active drainage on her dressing at this time. She is able to dorsiflex and plantar flex her left foot and her sensation is intact. She states that she did not ambulate with physical therapy yesterday, but does plan to today. ASSESSMENT: Status post day 1 of left total knee arthroplasty. PLAN: Ms. Melton will be going to [facility] in [place] for her physical therapy and she is going to try to start this tomorrow. She will be placed on Xarelto for DVT prophylaxis and will be taking Percocet as needed for pain. We will see her back in the office in approximately 2 weeks. Her delma will be removed at that time. She is to call the office for any concerns. Dictated by RAYMOND Luz for Zurdo Mccloud MD cc: Zurdo Mccloud MD
== END 2019-11-04 11:32 | disposition home or self-care (01) | DRG 470 ==
LOC: SURHOLD 08:53 → 4N 12:16
PROVIDERS: ADMIT Orthopaedic Surgery Adult Reconstructive Orthopaedic Surgery; ATTEND Orthopaedic Surgery Adult Reconstructive Orthopaedic Surgery